=== PATIENT | female | born 1975 | race Two or more races ===

== ENCOUNTER 2021-08-09 20:21 | Inpatient (IN) | payer OTHER ==
[~2021-08-09] VITALS: Ht 165.1 cm; Wt 85.0 kg
[2021-08-09] MEDS ORDERED: DexAMETHasone SOD PHOS 10MG/1ML VIAL INJ IV ONE (20:45)
[2021-08-09 21:10] LABS: Basophils # (auto) 0 10 ^3/uL (0-0.2); Basophils % (auto) 0.2 % (0.0-2.0); Eosinophils # (auto) 0 10 ^3/uL (0-0.8); Hematocrit 38.9 % (36.0-46.0); Hemoglobin 13.4 g/dL (12.2-16.2); Lymphocytes # (auto) 0.4 10 ^3/uL (0.4-5.4); Mean Corpuscular Hemoglobin 31.9 pg (28.0-32.0); Mean Corpuscular Hgb Conc. 34.6 g/dL (32.0-36.0); Mean Corpuscular Volume 92.1 fL (80.0-100.0); Monocytes # (auto) 0.2 10 ^3/uL (0-1.3); Monocytes % (auto) 2.4 % (0.0-12.0); Neutrophils # (auto) 6.5 10 ^3/uL (1.6-8.6); Neutrophils % (auto) 92.4 % (37.0-80.0); Red Blood Cells 4.22 10^6/uL (4.0-5.20); Red Cell Distribution Width 11.8 % (11.8-14.3); White Blood Cell 7.1 10^3/uL (4.4-10.8)
[2021-08-09 21:27] LABS: BUN/Creatinine Ratio 18.5; Calcium 7.8 mg/dL (8.5-10.1)
[2021-08-10] VITALS (8 sets, daily range): BP systolic 107–139; BP diastolic 72–86
[2021-08-10] MEDS ORDERED: NITROGLYCERIN 0.4 MG SL TAB SL PRN (01:45)
[2021-08-10] MEDS ORDERED: SODIUM CHLORIDE 0.9% 1,000 ML IV SCH (01:45)
[2021-08-10] MEDS ORDERED: MORPHINE SULFATE INJECTION 2 MG/ML SYRG IV PRN (01:45)
[2021-08-10] MEDS ORDERED: ONDANSETRON HCL 4 MG/2 ML VIAL IV PRN (01:45)
[2021-08-10] MEDS ORDERED: DEXTROSE (50%) 50ML SYRG IV PRN (01:45)
[2021-08-10] MEDS ORDERED: DOCUSATE SOD 100 MG CAP PO PRN (01:45)
[2021-08-10] MEDS ORDERED: HYDROcodone-ACET 5/325MG TAB PO PRN (01:45)
[2021-08-10] MEDS ORDERED: ALBUTEROL SULF HFA 90MCG INH 200DOSE IN PRN (01:45)
[2021-08-10] MEDS ORDERED: ACETAMINOPHEN 500 MG TAB PO PRN (01:45)
[2021-08-10] MEDS ORDERED: METF-489 PO (05:21)
[2021-08-10] MEDS: ACCU-CHEK COMFORT CURVE STRIP VI SCH ×3 (06:07→17:46)
[2021-08-10] MEDS: InsuLIN REG 1unit/0.01ml Soln (100units/ml) SC SCH ×3 (06:10→17:46)
[2021-08-10] MEDS: BUDESONIDE (INHALATION) 180 MCG IH IN SCH ×2 (10:00→18:58)
[2021-08-10] MEDS ORDERED: ENOXAPARIN SOD 40 MG/0.4 ML SYRINGE SC SCH (10:00)
[2021-08-10] MEDS: FAMOTIDINE (10MG/ML) 2ML VL IV SCH ×2 (10:40→23:36)
[2021-08-10] MEDS: DexAMETHasone SOD PHOS 10MG/1ML VIAL INJ IV SCH (10:40)
[2021-08-10] MEDS: ASCORBIC ACID 1,000 MG TAB PO SCH (10:41)
[2021-08-10] MEDS: MULTIPLE VITAMIN TAB PO SCH (10:41)
[2021-08-10] MEDS: ASPirin 81 mg TAB PO SCH (10:41)
[2021-08-10] MEDS: ZINC SULFATE 220mg CAP or TAB PO SCH (10:41)
[2021-08-10] MEDS: DOXYCYCLINE 100MG/250ML 250 ML IV SCH ×2 (10:41→22:01)
[2021-08-10] MEDS: CHOLECALCIFEROL (VITD3) 2,000 UNIT CAP/TAB PO SCH (10:42)
[2021-08-10] MEDS ORDERED: REMDESIVIR PER PHARMACY 0 ML IV SCH (14:15)
[2021-08-10] MEDS ORDERED: REMDESIVIR 200 MG in NS 210ml LOADING DOSE ADULT IV ONE (15:00)
[2021-08-10] MEDS: FUROSEMIDE 20 MG/2 ML VIAL IV SCH (15:35)
[2021-08-10] MEDS: ALBUTEROL SULF HFA 90MCG INH 200DOSE IN PRN ×2 (18:31→18:58)
[2021-08-10] MEDS: ENOXAPARIN SOD 40 MG/0.4 ML SYRINGE SC SCH (22:01)
[2021-08-11] MEDS: ACCU-CHEK COMFORT CURVE STRIP VI SCH ×4 (00:14→17:01)
[2021-08-11] MEDS: InsuLIN REG 1unit/0.01ml Soln (100units/ml) SC SCH ×4 (00:14→17:02)
[2021-08-11] MEDS ORDERED: TEMAZEPAM 15 MG CAP PO ONE ×2 (04:00→23:30)
[2021-08-11 05:00] VITALS: BP 125/68
[2021-08-11] MEDS: BUDESONIDE (INHALATION) 180 MCG IH IN SCH ×2 (06:02→20:31)
[2021-08-11] MEDS: ALBUTEROL SULF HFA 90MCG INH 200DOSE IN PRN ×2 (06:02→20:31)
[2021-08-11 06:29] LABS: Basophils # (auto) 0 10 ^3/uL (0-0.2); Basophils % (auto) 0.1 % (0.0-2.0); Eosinophils # (auto) 0 10 ^3/uL (0-0.8); Hematocrit 41.5 % (36.0-46.0); Hemoglobin 14.1 g/dL (12.2-16.2); Lymphocytes # (auto) 0.7 10 ^3/uL (0.4-5.4); Lymphocytes % (auto) 10.5 % (10.0-50.0); Mean Corpuscular Hemoglobin 31.4 pg (28.0-32.0); Mean Corpuscular Hgb Conc. 34.1 g/dL (32.0-36.0); Monocytes # (auto) 0.7 10 ^3/uL (0-1.3); Neutrophils # (auto) 5.2 10 ^3/uL (1.6-8.6); Neutrophils % (auto) 79.4 % (37.0-80.0); Nucleated Red Blood Cells % 0.1 %; Red Cell Distribution Width 12.1 % (11.8-14.3); White Blood Cell 6.6 10^3/uL (4.4-10.8)
[2021-08-11 07:03] LABS: Potassium 4.2 mmol/L (3.5-5.1)
[2021-08-11 07:10] LABS: Albumin 2.1 g/dL (3.4-5.0); BUN/Creatinine Ratio 38.1; Bilirubin, Total 0.2 mg/dL (0.2-1.0); Total Protein 6.3 g/dL (6.4-8.2)
[2021-08-11 08:42] VITALS: BP 125/69
[2021-08-11] MEDS: DexAMETHasone SOD PHOS 10MG/1ML VIAL INJ IV SCH (09:23)
[2021-08-11] MEDS: FUROSEMIDE 20 MG/2 ML VIAL IV SCH (09:23)
[2021-08-11] MEDS: MULTIPLE VITAMIN TAB PO SCH (09:24)
[2021-08-11] MEDS: IVERMECTIN 3 MG TAB PO SCH (09:24)
[2021-08-11] MEDS: FAMOTIDINE (10MG/ML) 2ML VL IV SCH ×2 (09:24→22:11)
[2021-08-11] MEDS: ZINC SULFATE 220mg CAP or TAB PO SCH (09:24)
[2021-08-11] MEDS: ASPirin 81 mg TAB PO SCH (09:24)
[2021-08-11] MEDS: DOXYCYCLINE 100MG/250ML 250 ML IV SCH ×2 (09:24→22:12)
[2021-08-11] MEDS: ENOXAPARIN SOD 40 MG/0.4 ML SYRINGE SC SCH ×2 (09:25→22:12)
[2021-08-11] MEDS: ASCORBIC ACID 1,000 MG TAB PO SCH (09:25)
[2021-08-11] MEDS: CHOLECALCIFEROL (VITD3) 2,000 UNIT CAP/TAB PO SCH (09:25)
[2021-08-11] MEDS ORDERED: ZINC SULFATE 220mg CAP or TAB PO SCH (10:00)
[2021-08-11] MEDS ORDERED: CHOLECALCIFEROL (VITD3) 2,000 UNIT CAP/TAB PO SCH (10:00)
[2021-08-11] MEDS ORDERED: ASCORBIC ACID 1,000 MG TAB PO SCH (10:00)
[2021-08-11] MEDS ORDERED: Ensure Enlive Strawberry 8oz Bottle PO SCH (12:00)
[2021-08-11] MEDS ORDERED: Glucerna Carbsteady SHAKE Vanilla 8oz PO SCH (12:00)
[2021-08-11 13:18] VITALS: BP 128/65
[2021-08-11] MEDS: REMDESIVIR 100mg 100 MG in SODIUM CHL 0.9% 230 ML IV SCH (15:15)
[2021-08-11 17:00] VITALS: BP 124/77
[2021-08-11] MEDS: INSULIN LANTUS (GLARGINE) 1 /0.01ml (100units/ml) SC SCH (22:13)
[2021-08-12] MEDS: ACCU-CHEK COMFORT CURVE STRIP VI SCH ×5 (00:02→23:02)
[2021-08-12] MEDS: InsuLIN REG 1unit/0.01ml Soln (100units/ml) SC SCH ×5 (00:05→23:09)
[2021-08-12 06:07] VITALS: BP 125/75
[2021-08-12 07:06] LABS: Potassium 4.4 mmol/L (3.5-5.1)
[2021-08-12 07:10] LABS: Albumin 2.1 g/dL (3.4-5.0); BUN/Creatinine Ratio 37.5; Magnesium 2.5 mg/dL (1.6-2.6)
[2021-08-12 07:19] LABS: Bilirubin, Total 0.2 mg/dL (0.2-1.0); CRP High Sensitivity 4.62 mg/dL (< 0.3); Total Protein 6.2 g/dL (6.4-8.2)
[2021-08-12] MEDS: BUDESONIDE (INHALATION) 180 MCG IH IN SCH ×2 (07:23→20:37)
[2021-08-12] MEDS: ALBUTEROL SULF HFA 90MCG INH 200DOSE IN PRN ×2 (07:23→20:38)
[2021-08-12 09:00] VITALS: BP 117/66
[2021-08-12] MEDS: FAMOTIDINE (10MG/ML) 2ML VL IV SCH ×2 (10:00→22:10)
[2021-08-12] MEDS: FUROSEMIDE 20 MG/2 ML VIAL IV SCH (10:00)
[2021-08-12] MEDS: IVERMECTIN 3 MG TAB PO SCH (10:39)
[2021-08-12] MEDS: MULTIPLE VITAMIN TAB PO SCH (10:40)
[2021-08-12] MEDS: ASPirin 81 mg TAB PO SCH (10:40)
[2021-08-12] MEDS: ZINC SULFATE 220mg CAP or TAB PO SCH (10:40)
[2021-08-12] MEDS: ASCORBIC ACID 1,000 MG TAB PO SCH (10:40)
[2021-08-12] MEDS: DexAMETHasone SOD PHOS 10MG/1ML VIAL INJ IV SCH (10:41)
[2021-08-12] MEDS: CHOLECALCIFEROL (VITD3) 2,000 UNIT CAP/TAB PO SCH (10:42)
[2021-08-12] MEDS: ENOXAPARIN SOD 40 MG/0.4 ML SYRINGE SC SCH ×2 (10:43→21:03)
[2021-08-12] MEDS: DOXYCYCLINE 100MG/250ML 250 ML IV SCH ×2 (10:44→21:02)
[2021-08-12] MEDS ORDERED: LORazepam 0.5 MG TAB PO PRN (12:00)
[2021-08-12 12:35] VITALS: BP 128/71
[2021-08-12] MEDS: REMDESIVIR 100mg 100 MG in SODIUM CHL 0.9% 230 ML IV SCH (15:00)
[2021-08-12 16:50] VITALS: BP 132/77
[2021-08-12] MEDS: INSULIN LANTUS (GLARGINE) 1 /0.01ml (100units/ml) SC SCH (21:03)
[2021-08-12 22:00] VITALS: BP 124/76
[2021-08-13 05:00] VITALS: BP 133/71
[2021-08-13] MEDS: ACCU-CHEK COMFORT CURVE STRIP VI SCH ×4 (05:24→23:12)
[2021-08-13] MEDS: InsuLIN REG 1unit/0.01ml Soln (100units/ml) SC SCH ×4 (05:28→23:25)
[2021-08-13] MEDS: BUDESONIDE (INHALATION) 180 MCG IH IN SCH ×2 (08:32→18:56)
[2021-08-13] MEDS: ALBUTEROL SULF HFA 90MCG INH 200DOSE IN PRN ×2 (08:32→18:55)
[2021-08-13 09:00] VITALS: BP 114/61
[2021-08-13] MEDS: FAMOTIDINE (10MG/ML) 2ML VL IV SCH ×2 (10:03→22:21)
[2021-08-13] MEDS: FUROSEMIDE 20 MG/2 ML VIAL IV SCH (10:03)
[2021-08-13] MEDS: DexAMETHasone SOD PHOS 10MG/1ML VIAL INJ IV SCH (10:03)
[2021-08-13] MEDS: DOXYCYCLINE 100MG/250ML 250 ML IV SCH ×2 (10:04→22:21)
[2021-08-13] MEDS: ASPirin 81 mg TAB PO SCH (10:04)
[2021-08-13] MEDS: ZINC SULFATE 220mg CAP or TAB PO SCH (10:04)
[2021-08-13] MEDS: CHOLECALCIFEROL (VITD3) 2,000 UNIT CAP/TAB PO SCH (10:05)
[2021-08-13] MEDS: IVERMECTIN 3 MG TAB PO SCH (10:05)
[2021-08-13] MEDS: ENOXAPARIN SOD 40 MG/0.4 ML SYRINGE SC SCH ×2 (10:05→22:21)
[2021-08-13] MEDS: ASCORBIC ACID 1,000 MG TAB PO SCH (10:05)
[2021-08-13] MEDS: MULTIPLE VITAMIN TAB PO SCH (10:05)
[2021-08-13 12:11] VITALS: BP 114/67
[2021-08-13 13:00] VITALS: BP 122/70
[2021-08-13] MEDS: REMDESIVIR 100mg 100 MG in SODIUM CHL 0.9% 230 ML IV SCH (15:25)
[2021-08-13 17:00] VITALS: BP 122/77
[2021-08-13 22:00] VITALS: BP 120/61
[2021-08-13] MEDS: INSULIN LANTUS (GLARGINE) 1 /0.01ml (100units/ml) SC SCH (22:22)
[2021-08-14 05:00] VITALS: BP 111/64
[2021-08-14] MEDS: ACCU-CHEK COMFORT CURVE STRIP VI SCH ×4 (05:53→23:27)
[2021-08-14] MEDS: InsuLIN REG 1unit/0.01ml Soln (100units/ml) SC SCH ×4 (05:54→23:54)
[2021-08-14 06:08] LABS: Potassium 3.8 mmol/L (3.5-5.1)
[2021-08-14] MEDS: BUDESONIDE (INHALATION) 180 MCG IH IN SCH ×2 (06:11→21:09)
[2021-08-14] MEDS: ALBUTEROL SULF HFA 90MCG INH 200DOSE IN PRN ×2 (06:11→21:10)
[2021-08-14 06:15] LABS: CRP High Sensitivity 4.06 mg/dL (< 0.3)
[2021-08-14 08:00] VITALS: BP 126/75
[2021-08-14 09:00] VITALS: BP 113/64
[2021-08-14] MEDS: DOXYCYCLINE 100MG/250ML 250 ML IV SCH ×2 (09:35→23:26)
[2021-08-14] MEDS: ASCORBIC ACID 1,000 MG TAB PO SCH (09:36)
[2021-08-14] MEDS: IVERMECTIN 3 MG TAB PO SCH (09:36)
[2021-08-14] MEDS: MULTIPLE VITAMIN TAB PO SCH (09:37)
[2021-08-14] MEDS: FAMOTIDINE (10MG/ML) 2ML VL IV SCH ×2 (09:37→23:26)
[2021-08-14] MEDS: DexAMETHasone SOD PHOS 10MG/1ML VIAL INJ IV SCH (09:37)
[2021-08-14] MEDS: CHOLECALCIFEROL (VITD3) 2,000 UNIT CAP/TAB PO SCH (09:37)
[2021-08-14] MEDS: ZINC SULFATE 220mg CAP or TAB PO SCH (09:37)
[2021-08-14] MEDS: ASPirin 81 mg TAB PO SCH (09:37)
[2021-08-14] MEDS: ENOXAPARIN SOD 40 MG/0.4 ML SYRINGE SC SCH ×2 (09:38→23:27)
[2021-08-14] MEDS: FUROSEMIDE 20 MG/2 ML VIAL IV SCH (09:39)
[2021-08-14] MEDS ORDERED: PROMETHAZINE W/CODEINE 5 ML ORAL SYRUP PO PRN (11:15)
[2021-08-14 12:39] VITALS: BP 116/68
[2021-08-14] MEDS: REMDESIVIR 100mg 100 MG in SODIUM CHL 0.9% 230 ML IV SCH (16:30)
[2021-08-14 17:00] VITALS: BP 130/78
[2021-08-14 22:00] VITALS: BP 113/65
[2021-08-14] MEDS: INSULIN LANTUS (GLARGINE) 1 /0.01ml (100units/ml) SC SCH (23:54)
[2021-08-15 05:00] VITALS: BP 118/70
[2021-08-15] MEDS: InsuLIN REG 1unit/0.01ml Soln (100units/ml) SC SCH ×2 (06:00→12:00)
[2021-08-15] MEDS: ACCU-CHEK COMFORT CURVE STRIP VI SCH ×2 (06:00→12:00)
[2021-08-15] MEDS: BUDESONIDE (INHALATION) 180 MCG IH IN SCH (06:24)
[2021-08-15] MEDS: ALBUTEROL SULF HFA 90MCG INH 200DOSE IN PRN (06:24)
[2021-08-15 08:00] VITALS: BP 116/72
[2021-08-15] MEDS: DexAMETHasone SOD PHOS 10MG/1ML VIAL INJ IV SCH (10:08)
[2021-08-15] MEDS: FUROSEMIDE 20 MG/2 ML VIAL IV SCH (10:09)
[2021-08-15] MEDS: FAMOTIDINE (10MG/ML) 2ML VL IV SCH (10:09)
[2021-08-15] MEDS: ASPirin 81 mg TAB PO SCH (10:10)
[2021-08-15] MEDS: IVERMECTIN 3 MG TAB PO SCH (10:10)
[2021-08-15] MEDS: ZINC SULFATE 220mg CAP or TAB PO SCH (10:10)
[2021-08-15] MEDS: MULTIPLE VITAMIN TAB PO SCH (10:10)
[2021-08-15] MEDS: ASCORBIC ACID 1,000 MG TAB PO SCH (10:11)
[2021-08-15] MEDS: ENOXAPARIN SOD 40 MG/0.4 ML SYRINGE SC SCH (10:11)
[2021-08-15] MEDS: CHOLECALCIFEROL (VITD3) 2,000 UNIT CAP/TAB PO SCH (10:11)
[2021-08-15 12:00] VITALS: BP 124/73
[2021-08-15 14:44] VITALS: BP 124/73
[2021-08-15 16:00] VITALS: BP 110/75
[2021-08-15] MEDS ORDERED: ALBUAER3 IN (17:14)
[2021-08-15] MEDS ORDERED: ASCO10003 PO (17:14)
[2021-08-15] MEDS ORDERED: CHOL20007 PO (17:14)
[2021-08-15] MEDS ORDERED: ASPI-378 PO (17:14)
[2021-08-15] MEDS ORDERED: DEX4T PO (17:14)
[2021-08-15] MEDS ORDERED: BUDE2SUS3 IN (17:14)
[2021-08-15] MEDS ORDERED: FAMO20TA10 PO (17:14)
[2021-08-15] MEDS ORDERED: DOXY-286 PO (17:14)
[2021-08-15] MEDS ORDERED: ZINC220T6 PO (17:14)
== END 2021-08-15 17:43 | disposition home or self-care (01) | DRG 871 ==
LOC: EDBD 20:21 → ER 20:21 → TELE-EAST 08-10 01:36
PROVIDERS: ADMIT Nurse Practitioner Family; ATTEND Internal Medicine
PROC: XW033E5 Introduction of Remdesivir Anti-infective into Peripheral Vein, Percutaneous Approach, New Technology Group 5 (ICD-10-PCS; principal; 2021-08-10)
DX: A41.89 Other specified sepsis (principal); U07.1 COVID-19; J12.82 Pneumonia due to coronavirus disease 2019; J96.01 Acute respiratory failure with hypoxia; E87.1 Hypo-osmolality and hyponatremia; E11.65 Type 2 diabetes mellitus with hyperglycemia; E55.9 Vitamin D deficiency, unspecified; E66.9 Obesity, unspecified; D89.839 Cytokine release syndrome, grade unspecified; Z68.27 Body mass index [BMI] 27.0-27.9, adult
CPT/HCPCS: 36415; 36600; 71045; 80048; 80053; 82306; 82728; 82805; 82962; 83036; 83605; 83735; 84132; 84702; 85025; 85379; 86141; 87040; 87426; 93005; 93970; 94640; 96361; 96374; 97116; 97163; 97530; G0378; J1100; J1815; J3490